=== PATIENT | male | born 1990 | race Caucasian/White ===

== ENCOUNTER 2016-11-05 08:37 | Emergency (ER) | payer OTHER ==
[~2016-11-05] VITALS: Ht 177.8 cm; Wt 70.3 kg
[2016-11-05 08:38] VITALS: BP 132/66
[2016-11-05] MEDS ORDERED: IBUP600T26 PO (09:39)
== END 2016-11-05 09:48 | disposition home or self-care (01) ==
LOC: M ED 09:18
DX: M67.431 Ganglion, right wrist (principal)